=== PATIENT | male | born 1965 | race Caucasian/White ===

== ENCOUNTER → 2019-10-10 | Outpatient (CLI) | payer MEDICARE, MEDICAID ==
--- NOTE | 2019-10-10 13:58 | Diagnostic Imaging Report ---
INDICATION: Left elbow pain for the last 2 weeks. No known injuries. EXAMINATION: Left elbow dated 10/10/2019. FINDINGS: Three views of the elbow. There is narrowing and spurring at the radial and capitellar joint space. There are no fractures and no dislocations. IMPRESSION: Degenerative findings. No acute process. Dictated by: Dictated on workstation # [id number]
== END ==
LOC: RAD FS 13:38
PROVIDERS: ATTEND Nurse Practitioner Family
DX: M19.022 Primary osteoarthritis, left elbow (principal)
CPT/HCPCS: 73080

== ENCOUNTER 2020-08-10 23:37 | Emergency (ER) | payer MEDICARE, MEDICAID ==
--- NOTE | 2020-08-11 00:07 | ED Cough/URI ---
General Chief Complaint: Cough/Cold/Flu Symptoms Stated Complaint: COUGH Source: patient Exam Limitations: no limitations History of Present Illness Date Seen by Provider: Aug 10, 2020 Time Seen by Provider: 23:50 Initial Comments Patient presents to ER by private conveyance from home with chief complaint that he developed a cough 08/08/20. He says some fatigue but no body aches, loss of sense of taste or smell, diarrhea, nausea or vomiting. He says his mother recently went to the hospital yesterday because she was having acute on chronic shortness of breath. He does not have any lung issues COPD, asthma or dependence on oxygen. He does not use breathing treatments. He does have type 2 diabetes on metformin, hypertension and uses Seroquel for sleep and mood. He does live with his mother. He says he was tested for COVID 19 back in June and it was negative. His mother was tested for COVID 19 but she does not have the results back yet. 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 He has not gotten a flu vaccine yet this year. Allergies and Home Medications Allergies Coded Allergies: No Known Drug Allergies (Unverified , 08/10/20) Home Medications Benzonatate 100 Mg Capsule, 100 MG PO Q6H PRN for COUGH Prescribed by: ROMULO MORGAN on 08/11/207 Ondansetron 4 Mg Tab.rapdis, 4 MG PO Q6H PRN for NAUSEA/VOMITING Prescribed by: ROMULO MORGAN on 08/11/207 Patient Home Medication List Home Medication List Reviewed: Yes Review of Systems Review of Systems Constitutional: No chills, No diaphoresis, No fever; malaise EENTM: No ear discharge, No ear pain Respiratory: cough; No hemoptysis, No phlegm, No short of breath, No wheezing Cardiovascular: No chest pain, No palpitations Gastrointestinal: No abdominal pain, No nausea Genitourinary: No discharge, No dysuria Musculoskeletal: No back pain, No joint pain All Other Systems Reviewed Negative Unless Noted: Yes Past Nwvukqs-Aqlrnf-Tnpris Hx Patient Social History Alcohol Use: Denies Use Recreational Drug Use: No Smoking Status: Never a Smoker Recent Foreign Travel: No Contact w/Someone Who Travel: No Physical Exam Vital Signs - First Documented 08/11/20 00:00 Temp 37.3 Pulse 116 Resp 18 B/P (MAP) 151/91 (111) Pulse Ox 98 O2 Delivery Room Air Capillary Refill : Height: '" Weight: lbs. oz. kg; BMI Method: General Appearance: WD/WN, no apparent distress Eyes: Bilateral Eye Normal Inspection, Bilateral Eye PERRL, Bilateral Eye EOMI HEENT: PERRL/EOMI, normal ENT inspection, pharynx normal Neck: full range of motion, supple, normal inspection Respiratory: lungs clear, normal breath sounds, no respiratory distress, no accessory muscle use Cardiovascular: normal peripheral pulses, regular rate, rhythm Neurologic/Psychiatric: alert, normal mood/affect, oriented x 3 Skin: normal color, warm/dry Progress/Results/Core Measures Suspected Sepsis SIRS Temperature: Pulse: Respiratory Rate: Blood Pressure / Mean: Results/Orders Lab Results Laboratory Tests Test 08/10/20 00:05 Range/Units Micro Results Microbiology 08/10/20 Influenza Types A,B Antigen ([facility]) - Final, Complete My Orders Orders - ROMULO MORGAN Influenza A And B Antigens (08/10/20 23:59) Coronavirus Sars-Cov-2 So 2018 (08/10/20 23:59) Vital Signs/I&O 08/11/20 00:00 Temp 37.3 Pulse 116 Resp 18 B/P (MAP) 151/91 (111) Pulse Ox 98 O2 Delivery Room Air Capillary Refill : Progress Note : Time: 00:05 Progress Note Patient has some mild tachycardia but no temperature. Aseptic nonacute appearance. Probably a viral syndrome. Plan to get a flu swab and COVID 19 swabs sent out. We have discussed quarantine procedures with him as well as return precautions. We'll provide him with some ondansetron as he develops nausea, Tessalon Perles for cough. Departure Impression Primary Impression: Upper respiratory infection Qualified Codes: J06.9 - Acute upper respiratory infection, unspecified Additional Impression: Cough Disposition: 01 HOME, SELF-CARE Condition: Stable Departure-Patient Inst. Decision time for Depature: 00:06 Referrals: VIK CARTER MD (PCP/Family) Primary Care Physician Patient Instructions: Coronavirus Disease 2019 (COVID-19) Overview, Viral Upper Respiratory Infection, Adult (DC) Add. Discharge Instructions: When you get home drink plenty of fluids. Make sure you're taking your medications as prescribed. If you develop fever or bodyaches you may use Tylenol 1000 mg every 8 hours as necessary. You may also use ibuprofen 800 mg every 8 hours as necessary for fever or bodyaches. If you should develop nausea you can use Zofran/ondansetron 1 tablet under the tongue every 6 hours as necessary. If you have a cough you may use Tessalon Perles 1 capsule every 6 hours as necessary. Return to the nearest ER should you develop difficulty breathing, intractable nausea or other worrisome symptoms. Someone will call you in the next 2-3 days with the results of your COVID 19 swab. You need to quarantine for 10 days from the beginning of your symptoms. You also need to be 72 hours symptoms free before leaving quarantine. If your COVID 19 swab was negative however then you only need to be 72 hours symptoms free before returning from quarantine. All discharge instructions reviewed with patient and/or family. Voiced understanding. Scripts Benzonatate (Tessalon Perle) 100 Mg Capsule 100 MG PO Q6H PRN for COUGH, #30 CAP 0 Refills Prov: ROMULO MORGAN 08/11/20 Ondansetron (Ondansetron Odt) 4 Mg Tab.rapdis 4 MG PO Q6H PRN for NAUSEA/VOMITING, #8 TAB 0 Refills Prov: ROMULO MORGAN 08/11/20 Work/School Note: Work Release Form Date Seen in the Emergency Department: Aug 11, 2020 Return to Work: Aug 18, 2020 Restrictions: No Restrictions Other Restrictions Listed Below: May return 72 hours after your symptoms have stopped. Restrictions: If COVID positive then quarantine 10 days after starting symptoms as well. ROMULO MORGAN Aug 11, 2020 00:07
[2020-08-11] MEDS ORDERED: BENZ-13 PO (00:08)
[2020-08-11] MEDS ORDERED: ONDA4TAB11 PO (00:08)
[2020-08-11 00:41] VITALS: BP 129/89
== END 2020-08-11 00:44 | disposition home or self-care (01) ==
LOC: EDUNIT# 23:37 → ER FS 23:39
DX: U07.1 COVID-19 (principal); J06.9 Acute upper respiratory infection, unspecified; E11.9 Type 2 diabetes mellitus without complications; I10 Essential (primary) hypertension
CPT/HCPCS: 87804 ×2; 99282; U0002; 87635